=== PATIENT | female | born 1935 | race Caucasian/White ===

== ENCOUNTER 2023-05-26 15:30 | Emergency (ER) | payer MEDICARE, OTHER ==
[~2023-05-26] VITALS: Ht 165.1 cm; Wt 41.0 kg
[2023-05-26 15:58] LABS: BASOPHILS 0.7 % (0-2); EOSINOPHILS 1.1 % (0-6); HEMATOCRIT 37.1 % (35.0-50.0); LYMPHOCYTES 18.8 % (24-44); MCH 31.5 (27-36); MCHC 32.3 g/dl (30-36); MCV 97.5 fl (81-99); MONOCYTES 8.9 % (0-12); NEUTROPHILS 70.5 % (39-80); PLATELET COUNT 292 K/uL (140-440); RBC 3.81 M/ul (4.3-5.7); RDW 13.4 (10.5-15.0)
[2023-05-26 16:13] LABS: ALBUMIN 2.8 g/dL (3.4-5.0); ALBUMIN/GLOBULIN RATIO 0.76 (1.1-2.4); ANION GAP 16.6 (7-21); BILIRUBIN, TOTAL 0.5 ng/dL (0.2-1.0); BUN/CREATININE RATIO 29.26 (6.0-28.6); CALCIUM 9.1 mg/dL (8.5-10.1); CREATININE, SERUM 0.82 mg/dL (0.55-1.02); POTASSIUM 4.6 mmol/L (3.5-5.1); PROTEIN, TOTAL 6.5 g/dL (6.4-8.2)
--- OUTSIDE RECORDS SUMMARY | 2023-05-26 18:11 | XMS ---
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 Prema has no Care Guidelines for this patient. Boom VISIT COUNT (12 MO.) 1 GHULAM Dumas TOTAL 1 NOTE: Visits indicate total known visits. ED/UCC VISIT TRACKING (12 MO.) 05/26/2023 15:31 GHULAM Perez [place] TYPE: Emergency COMPLAINT: - LOW BP INPATIENT VISIT TRACKING (12 MO.) No inpatient visits to display in this time frame [email or web address]
[2023-05-26 18:34] LABS: BILIRUBIN, URINE NEGATIVE (negative); BLOOD/HGB, URINE TRACE-I (Negative); KETONE, URINE >=80 (Negative); LEUK ESTERASE, URINE SMALL (negative); NITRITE, URINE NEGATIVE (negative)
[2023-05-26 18:49] LABS: BACTERIA, URINE 3+ /hpf (negative); EPITHELIAL CELLS, URINE 0 /lpf (0-1+); REFLEX CULTURE, URINE Yes (No); WHITE BLOOD CELLS, URINE 41-50 /HPF (0-5)
[2023-05-26 19:08] VITALS: BP 118/61
[2023-05-26] MEDS ORDERED: CEPHALEXIN500 M1 PO (19:08)
== END 2023-05-26 19:13 | disposition home or self-care (01) ==
LOC: ED 15:30
PROVIDERS: Internal Medicine
DX: E11.65 Type 2 diabetes mellitus with hyperglycemia (principal); N39.0 Urinary tract infection, site not specified; I10 Essential (primary) hypertension; I25.10 Atherosclerotic heart disease of native coronary artery without angina pectoris; E78.5 Hyperlipidemia, unspecified; Z88.1 Allergy status to other antibiotic agents; Z88.2 Allergy status to sulfonamides; Z88.8 Allergy status to other drugs, medicaments and biological substances; Z79.4 Long term (current) use of insulin
CPT/HCPCS: 36415; 51701; 80053; 81001; 82010; 85025; 87088; 99285; A9270; J1815

== ENCOUNTER 2023-06-10 07:49 | Inpatient (IN) | payer MEDICARE, OTHER ==
[~2023-06-10] VITALS: Ht 165.1 cm; Wt 44.0 kg
[2023-06-10] VITALS (12 sets, daily range): BP systolic 95–123; BP diastolic 40–55
[~2023-06-10 07:49] MED LIST: CEPHALEXIN500 M1 PO
--- OUTSIDE RECORDS SUMMARY | 2023-06-10 07:57 | XMS ---
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 Prema has no Care Guidelines for this patient. Boom VISIT COUNT (12 MO.) 2 [facility] [place] H. TOTAL 2 NOTE: Visits indicate total known visits. ED/[facility] VISIT TRACKING (12 MO.) 06/10/2023 07:49 [facility] [place] TYPE: Emergency COMPLAINT: - BLOOD SUGAR PROBLEM 05/26/2023 15:[address] 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
[2023-06-10 08:23] LABS: EOSINOPHILS 0.1 % (0-6); HEMOGLOBIN 12.1 g/dL (12.0-18.0); LYMPHOCYTES 7.9 % (24-44); RDW 15.1 (10.5-15.0)
[2023-06-10 08:26] LABS: BASOPHILS 0.8 % (0-2); HEMATOCRIT 42.6 % (35.0-50.0); MCH 31.3 (27-36); MCHC 28.4 g/dl (30-36); MCV 110.1 fl (81-99); MONOCYTES 3.1 % (0-12); NEUTROPHILS 88.1 % (39-80); PLATELET COUNT 469 K/uL (140-440); RBC 3.87 M/ul (4.3-5.7)
[2023-06-10 08:45] LABS: ALBUMIN 3.3 g/dL (3.4-5.0); ALBUMIN/GLOBULIN RATIO 0.83 (1.1-2.4); ANION GAP 37.1 (7-21); BILIRUBIN, TOTAL 0.5 ng/dL (0.2-1.0); BUN/CREATININE RATIO 21.95 (6.0-28.6); CALCIUM 9.6 mg/dL (8.5-10.1); CREATININE, SERUM 1.64 mg/dL (0.55-1.02); POTASSIUM 4.1 mmol/L (3.5-5.1); PROTEIN, TOTAL 7.3 g/dL (6.4-8.2)
[2023-06-10 09:14] LABS: INFLUENZA B NAA NEGATIVE (NEGATIVE); RESPIRATORY SYNCYTIAL VIR NAA NEGATIVE (NEGATIVE)
[2023-06-10 09:16] LABS: BILIRUBIN, URINE NEGATIVE (negative); BLOOD/HGB, URINE SMALL (Negative); KETONE, URINE >=80 (Negative); LEUK ESTERASE, URINE SMALL (negative); NITRITE, URINE NEGATIVE (negative); PH, URINE 5.5 (5-7)
[2023-06-10] MEDS ORDERED: NEURONTIN300 MG PO (09:22)
[2023-06-10] MEDS ORDERED: VITAMIN B12-FO1 EACH PO (09:22)
[2023-06-10] MEDS ORDERED: LOPERAMIDE2 MG PO (09:23)
[2023-06-10] MEDS ORDERED: MAGNESIUM400 MG PO (09:23)
[2023-06-10] MEDS ORDERED: TYLENOL325 MG PO (09:23)
[2023-06-10 09:24] LABS: RED BLOOD CELLS, URINE 0-1 /hpf (0-5)
[2023-06-10 09:25] LABS: BACTERIA, URINE RARE /hpf (negative); CASTS, URINE NONE SEEN \\lpf; COLLECTION TYPE, URINE CATH; CRYSTALS, URINE NONE SEEN (0-1+); EPITHELIAL CELLS, URINE SQUAMOUS 1+ /lpf (0-1+); REFLEX CULTURE, URINE Yes (No); WHITE BLOOD CELLS, URINE >50 /HPF (0-5)
--- NOTE | 2023-06-10 09:50 | NUR ---
TRANSPORTED PT FROM ER TO CCU ROOM 129. REPORT RECEIVED FROM DIEGO PHELAN.
[2023-06-10] MEDS ORDERED: HUMALOG100 UNIT/1 SUB-Q (10:00)
--- NOTE | 2023-06-10 10:00 | NUR ---
PT ARRIVES FROM ER, ADMITTED FOR DKA. PT IS ALONE, VERY LETHARGIC AND MOANING, NOT ABLE TO ANSEWR MANY QUESTIONS. ARRIVES WITH INSULIN DRIP INFUSING WELL NS BOLUS. PT TRANSFERRED TO BED WITH SLIDER SHEET, SKIN ASSESSMENT SHOWS REDNESS ON COCCYX WITH SMALL AREA OF BREAKDOWN, ALLEVYN APPLIED. VSS, HR SLIGHTLY TACHYCARDIC AT 105, ON ROOM AIR WITH SPO2 96%. PT IS HAVING CHILLS AND WARM BLANKETS GIVEN, PT IS AFEBRILE WITH TEMP BANKS IN PLACE. PLAN TO CONT INSULIN INFUSION AND RECHECK LABS DISCUSSED WITH PT.
--- NOTE | 2023-06-10 11:16 | NUR ---
PT C/O LEFT HIP DISCOMFORT. PT REPOSITIONED WITH PILLOW UNDER HIP AND REPORTS DECREASE IN DISCOMFORT. REDRESSED RIGTH FORARM IV THERE WAS SOME BLOOD LEAKING FROM INSERTION SITE.
--- NOTE | 2023-06-10 11:31 | NUR ---
CRITICAL VALUE RECEIVED FROM LAB, LACTIC ACID 5, RESULT CALLED TO DR MEDINA, NO NEW ORDERS AT THIS TIME.
--- NOTE | 2023-06-10 12:17 | NUR ---
ORAL CARE PROVIDED TO PT WITH WET SPONGE. CHAPSTICK APPLIED TO LIPS. PT'S ON IN ROOM. CALL LIGHT WITHIN REACH
--- NOTE | 2023-06-10 13:06 | NUR ---
PT RESTING IN BED WITH EYES CLOSED. RESP EVEN AND UNLABORED. DAUGHTER IN LAW AT BEDSIDE HOLDING PT'S HAND. INSULIN DRIP ADJUSTED PER PROTOCOL. CALL LIGHT WITHIN REACH
[2023-06-10] MEDS ORDERED: VITAMIN D325 MC2 PO (13:25)
[2023-06-10] MEDS ORDERED: CENTRUM SILVER1 EAC3 PO (13:26)
[2023-06-10] MEDS ORDERED: VITAMIN B-12500 MCG PO (13:26)
[2023-06-10] MEDS ORDERED: CULTURELLE1 EACH PO (13:27)
[2023-06-10] MEDS ORDERED: MIRALAX17 GM PO (13:28)
[2023-06-10] MEDS ORDERED: SENNA8.6 MG PO (13:29)
[2023-06-10] MEDS ORDERED: FLEET ENEMA133 ML PR (13:30)
[2023-06-10] MEDS ORDERED: TRESIBA FL100 UNIT/1 SUB-Q (13:37)
--- NOTE | 2023-06-10 13:38 | NUR ---
MED [facility]
[2023-06-10 14:02] LABS: PH, VENOUS 7.386 (7.31-7.41)
--- NOTE | 2023-06-10 14:06 | NUR ---
LAB IN ROOM TO DRAW REPEAT BMP AND BLOOD GAS. PT TOLERATES. BLOOD SUGER BELOW 200, FOLLOWED ORDERS AND PROTOCOL. REDUCED INSULIN DRIP AND STARTED D5 1/2NS. SEE EMAR. ABX STARTED. PT'S DAUGHTER IN LAW REMAINS IN ROOM AND HELPS WITH ORAL CARE/FEEDING ICE CHIPS. PT REPOSITIONED IN BED LEFT LATERAL WITH PILLOW UNDER RIGHT HIP. CATHERTER REPOSITIONED AND U/O INCREASED. CALL LIGHT WITHIN REACH.
[2023-06-10 14:14] LABS: ANION GAP 15.9 (7-21); BUN/CREATININE RATIO 30.47 (6.0-28.6); CALCIUM 8.4 mg/dL (8.5-10.1); CREATININE, SERUM 1.05 mg/dL (0.55-1.02); POTASSIUM 2.9 mmol/L (3.5-5.1)
--- NOTE | 2023-06-10 14:34 | NUR ---
RECENT LAB RESULTS DISCUSSED WITH DR MEDINA. ORDERS GIVEN FOR KCL AND CHANGE IVF.
--- NOTE | 2023-06-10 16:24 | NUR ---
PT'S SON RETURNS. UPDATES ON PT GIVEN AND PT'S SON UNDERSTANDS AND DENIES FURTHER QUESTIONS. PT'S RESP EVEN AND UNLABORED SHE RESTS IN BED.
--- NOTE | 2023-06-10 17:07 | NUR ---
PT RESTING IN BED. PT MOVING AROUND MOANING. DR INFORMED OF SOFT PRESSURES AND THE POSSIBILITY OF TYLENOL FOR PAIN. NO NEW ORDERS RECEIVED AT THIS TIME. INSULIN DROP REMAINS AT THE RATE OF 2.4. CALL LIGHT GIVEN
--- NOTE | 2023-06-10 18:07 | NUR ---
PT TURNED TO OTHER SIDE. NOW LEFT LATERAL. BANKS DRAINING SUFFICIENT URINE. BLOOD SUGAR DECREASED. INSULIN DRIP DECREASED PER PROTOCOL. POTASSIUM STILL INFUSING. WARM BLANKET GIVEN. NO OTHER NEEDS VOICED AT THIS TIME. PT BACK TO SLEEP. CALL LIGHT GIVEN
[2023-06-10 18:15] LABS: BUN/CREATININE RATIO 34.04 (6.0-28.6); CALCIUM 8.2 mg/dL (8.5-10.1); CREATININE, SERUM 0.94 mg/dL (0.55-1.02)
--- NOTE | 2023-06-10 18:20 | NUR ---
CALLED TO UPDATE ON RECENT LAB RESULTS AND BP'S.
--- NOTE | 2023-06-10 20:00 | NUR ---
PATIENT ZAMORANO CONTINUES TO BE ON THE INSULIN GTT AND DKA PROTOCOL. CBG THIS HOUR WAS 163. PATIENT DENIES ANY DISCOMFORT AND STATES THAT SHE WOULD JUST LIKE TO REST A BIT MORE. LIGHT WERE DIMMED AND WARM BLANKETS PROVIDED
[2023-06-10 22:13] LABS: ANION GAP 14.4 (7-21); BUN/CREATININE RATIO 37.8 (6.0-28.6); CALCIUM 8.5 mg/dL (8.5-10.1); CREATININE, SERUM 0.82 mg/dL (0.55-1.02); POTASSIUM 4.4 mmol/L (3.5-5.1)
--- NOTE | 2023-06-10 23:07 | NUR ---
RECEIVED SBAR REPORT FROM ZHANE VIZCAINO. ALL QUESTIONS AND CONCERNS WERE ADDRESSED. NO FURTHER INTERVENTIONS NEEDED AT THIS TIME. PATIENT STATES COMFORTABLE AND DENIES ANY NEEDS
--- NOTE | 2023-06-10 23:20 | NUR ---
ROUNDED WITH MD MEDINA AND DISCUSSED PLAN OF CARE. CBG 165. BLOOD GLUCOSE LEVELS HAS BEEN WELL MAINTAINED BETWEEN 160-180 SINCE 1500. WILL COMMENCE CHECKING GLUCOSE Q2 AT 2200. PRN ANALGESICS ORDERED IF THE NEED ARISES
[2023-06-11] VITALS (18 sets, daily range): BP systolic 92–139; BP diastolic 44–93
--- NOTE | 2023-06-11 01:19 | NUR ---
PATIENT ZAMORANO IS RESTING COMFORTABLY WITH EYES CLOSED. VSS AND WDL. CATHETER CARE PERFORMED. NO CONCERSN AT THIS TIME.
[2023-06-11 02:44] LABS: ANION GAP 11.9 (7-21); BUN/CREATININE RATIO 34.61 (6.0-28.6); CALCIUM 8.3 mg/dL (8.5-10.1); CREATININE, SERUM 0.78 mg/dL (0.55-1.02); POTASSIUM 3.9 mmol/L (3.5-5.1)
--- NOTE | 2023-06-11 04:04 | NUR ---
PATIENT JAUN BEGAN MOANING IN DISCOMFORT. SHE STATED THAT HER BACK WAS HURTING BUT WAS HESISTANT TO TRY PRN MORPHINE. AFTER HAVING DISCUSSIONS WITH THIS RN. SHE AGREED TO TRY 2MG MORPHINE FOR PAIN RELIEF.
[2023-06-11 05:41] LABS: BASOPHILS 0.6 % (0-2); EOSINOPHILS 0.1 % (0-6); HEMATOCRIT 28.5 % (35.0-50.0); HEMOGLOBIN 9.3 g/dL (12.0-18.0); LYMPHOCYTES 10.7 % (24-44); MCH 31.7 (27-36); MCHC 32.5 g/dl (30-36); MCV 97.4 fl (81-99); MONOCYTES 6.5 % (0-12); NEUTROPHILS 82.1 % (39-80); PLATELET COUNT 270 K/uL (140-440); RBC 2.93 M/ul (4.3-5.7); RDW 13.3 (10.5-15.0)
[2023-06-11 05:57] LABS: ANION GAP 14.3 (7-21); BUN/CREATININE RATIO 32.18 (6.0-28.6); CALCIUM 8.3 mg/dL (8.5-10.1); CREATININE, SERUM 0.87 mg/dL (0.55-1.02); POTASSIUM 4.3 mmol/L (3.5-5.1)
--- NOTE | 2023-06-11 06:44 | NUR ---
PATIENT ZAMORANO WAS ABLE TO REST OVERNIGHT IN BETWEEN INTERVENTIONS. SHE CONTINUES TO BE ON AN INSULIN GTT AND RECHECKING CBG Q2. IN ADDTIONAL TO THE INSULIN, SHE HAS MAINT. FLUID GTT, AND SCHEDULED ABX. SHE REQUIRED 2 DOSES OF PRN MORPHINE FOR DISCOMFORT IN HER BACK AND INDWELLING BANKS CATHETER NEURO- ORIENTED X 3. DISORIENTED TO TIME. SLOW TO ANSWER QUESTIONS BUT SHE WILL ANSWER APPROPRIATELY. MOVES ALL EXTREMITIES AND HAS A PREFERENCE TO KEEP LEGS BENT. ENDORSED PAIN IN HER BACK AND DISCOMFORT FROM INDWELLING BANKS CATHETER. AT TIMES NOTED TO MOAN BUT SHE WOULD DENY ANY DISCOMFORT PRN MORPHINE GIVEN TO EASE DISCOMFORT. RESP- RA, O2 SATS MAINTAINED ABOVE 94%, BREATH SOUNDS CLEAR, SNORING NOTED CARDIAC- SR. SI S2, LOW GRADE FEVER MAX OF 99.8 VIA TEMP BANKS. CURRENTLY 98.5. NO EDEMA NOTED GI/- NPO, NORMOACTIVE BOWEL TONES, INDWELLING BANKS CATHETER REMAINS PATENT WITH ADEQUATE URINE OUTPUT INT- SEE PREVIOUS ASSESSMENT LDA'S- L/AC AND RIGHT FA. INSULIN GTT AT 4.2. D5 0.45 NS WITH 20KMEQ AT 125CC P/HR.
--- NOTE | 2023-06-11 07:20 | NUR ---
report from emelia rn, pt krishnan draining qs urine, inuslin pump running at 4.2 drip rate, dr robertson on floor here. pt eyes closed, resting temp 98. call light in reach. iv d5ns w/20k at 125 hr.
--- NOTE | 2023-06-11 08:30 | NUR ---
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 pt is tremerous, nauseated and moaning over and over, denies needs other then nausea. new zofran order. pt has call light in reach, and visible from this rn at rn station.
--- NOTE | 2023-06-11 08:30 | NUR ---
PATIENT UP IN RECLINER, 2PA REQUIRED. PATIENT NOT ASSISTING IN TRANSFER, CAN PIVOT HOWEVER. BREAKFAST PROVIDED, THIS COMMISSIONER CONSERVATION OF RESOURCES ASSISTING, PATIENT ATE VERY FEW BITES. SON AT BEDSIDE. CALL LIGHT IN EASY REACH
--- NOTE | 2023-06-11 09:24 | NUR ---
PT NOT FEELING UP TO VISIT AT THIS TIME. LEFT GUIDEPOST WITH PRAYER CARD AND CONTACT CARD. PRAYED FOR RELIEF FROM DISCOMFORT.
--- NOTE | 2023-06-11 09:26 | NUR ---
PATIENT SITTING UP IN RECLINER, SON, ASHISH, IN ROOM ASSISTING PATIENT TO EAT. PATIENT DOES NOT ANSWER QUESTIONS WHEN ASKED, SON ANSWERS FOR HER. PATIENT IS CURRENTLY LIVING IN [facility]. UNABLE TO AMBULATE, SON STATES SHE USES A WHEELCHAIR. STAFF ASSISTS PATIENT WITH ADL'S, MOBILITY ETC. SON STATES SHE IS UNABLE TO LEAVE FACILITY WITHOUT HELP. DR. SHEA WENT TO [facility] TO SEE PATIENT AFTER SHE WAS ADMITTED. SON STATES DME IS ALL AT FACILITY. UNKNOWN, OTHER THAN WHEELCHAIR, WHAT PATIENT USES. SON STATES HE HAS PREVIOUSLY TRANSPORTED PATIENT, BUT PREFERS IF SHE COULD BE SEEN AT [facility]. UNKNOWN NEEDS AT THIS TIME.
--- NOTE | 2023-06-11 09:32 | NUR ---
PT SON IN ROOM TRYING TO ENCOURAGE PT TO EAT MEAL.(bs IS 92 ON DEXCOM) PT IS MOANING ON AND OFF, NO REAL COMPLAINTS FROM PT, NEXT BS IS AT 10 AM AND DRIP WILL TURN OFF AND SL IV. PT AND OT IN TO SEE PT.
--- NOTE | 2023-06-11 10:00 | NUR ---
report to tracee cuba, iv sl, and insulin drip stopped, bs check at this time by legal records manager.
--- NOTE | 2023-06-11 10:23 | NUR ---
REPORT RECEIVED FROM NIKOS PHELAN AND CARE ASSUMED OF PT. PT IS UP IN CHAIR, INSULIN DRIP TURNED OFF. PT STATES SHE IS NOT FEELING VERY WELL BUT CANNOT PUT HER FINGER ON IT, DENIES PAIN, STATES "NO IM NOT REALLY HAVING ANY PAIN", DENIES NAUSEA. IS LOOKING TIRED AND IS WANTING TO GO BACK TO SLEEP. WARM BLANKET PROVIDED.
[2023-06-11 10:52] LABS: ANION GAP 13.7 (7-21); BUN/CREATININE RATIO 34.72 (6.0-28.6); CALCIUM 8.8 mg/dL (8.5-10.1); CREATININE, SERUM 0.72 mg/dL (0.55-1.02); POTASSIUM 3.7 mmol/L (3.5-5.1)
--- NOTE | 2023-06-11 12:02 | NUR ---
PT HAS BEGUN MOAING IN PAIN, WHEN ASKED WHERE IT IS HURTING SHE STATES "ALL OVER". PT HAS BEEN CONINOUSLY MOANING FOR APPROX 10 MINUTES, NO CHANGE AFTER REPOSITIONING. 2MG IV MORPHINE GIVEN. PT CONT TO SIT UP IN CHAIR. LUNCH BROUGHT IN, SHE DECLINES TO EAT OR DRINK ANYTHING AT THIS TIME.
--- NOTE | 2023-06-11 12:34 | NUR ---
UR NOTE: MCG MET DIABETES (ISC) INPATIENT ON ADMIT 06/11/23 VARIANCE GL DAY 2
--- NOTE | 2023-06-11 13:30 | NUR ---
AFTER MORPHINE WAS GIVEN PT CONT TO C/O PAIN WITH CONT MOANING OFF AND ON. AT ONE POINT SHE WAS CRYING "KILL ME, KILL ME". PT CONT TO REFUSE TO TAKE PO PILLS.
--- NOTE | 2023-06-11 14:16 | NUR ---
DR MEDINA OVER TO ASSESS PT REGARDING CONT PAIN, IVF RESTARTED AND PLAN TO DO IMAGING.
--- NOTE | 2023-06-11 15:00 | NUR ---
PT WAS TAKEN DOWN FOR A CT OF ABD/PELVIS AND BROUGHT BACK TO ROOM. PT CONT TO BE PAINFUL ALL OVER, C/O PAIN IN LEFT ARM. AWARE, IN TO DISCUSS PLAN WITH DAUGHTER IN LAW. PT CONT TO REFUSE TO TAKE PO, STATES SHE CANNOT SWALLOW A PILL AT THIS TIME.
--- NOTE | 2023-06-11 20:00 | NUR ---
PATIENT JAUN IS VISITING WITH HER SON JOE WHO IS AT BEDSIDE. SHE IS NOTED TO BE SOMNOLENT, HOWEVER IS ABLE TO ANSWER ORIENTATION QUESTIONS APPROPRIATELY. SHE DENIES ANY NEEDS AT THIS TIME.
--- NOTE | 2023-06-11 21:30 | NUR ---
RECEIVED SBAR REPORT FROM ZHANE CARROLL. ALL QUESTIONS AND CONCERS WERE ADDRESSED. ASSUMED PATIENT CARE. PATIENT ZAMORANO IS RESTING WITH EYES CLOSED. SHE DENIES ANY PAIN OR DISCOMFORTS AT THIS TIME. INDWELLING BANKS CATHETER IS BELOW THE BLADDER AND PATENT AND INTACT.
--- NOTE | 2023-06-11 21:58 | NUR ---
CBG 184. 2100 HUMALOG HELD DUE TO LACK OF APPETITE AND NO GLUCOSE SOURCE. EVENING PRESCRIBED ABX HUNG. ROUNDED WITH MD MEDINA TO SEE IF HE WANTED TO SWITCH MF TO INCLUDED SOME DEXTROSE. WE WILL WAIT UNTIL THE MORNING TO SEE IF HER APPETITE INCREASES. PATIENT JAUN IS FOUND TO BE MORE ALERT AND ORIENTED. WE DISCUSSED [employer] MUS[employer] AND [employer]GT[employer]. SHE REQUESTED TO WATCH TV AND IS CURRENTLY ENJOYING A SHOW RIGHT NOW. SHE DENIES ANY PAIN OR DISCOMFORTS AT THIS TIME.
--- NOTE | 2023-06-11 23:02 | NUR ---
PATIENT ZAMORANO CONTINUES TO ENJOY WATCHING TV. SHE DENIES ANY NEEDS OR DISCOMFORTS AT THIS TIME. WARM BLANKET APPLIED AND PILLOW PLACED BETWEEN KNEES TO PROTECT BONY PROMINENCES.
[2023-06-12] VITALS (9 sets, daily range): BP systolic 99–184; BP diastolic 50–85
--- NOTE | 2023-06-12 01:02 | NUR ---
PATIENT ZAMORANO CONTINUES TO ENDORSE COMFORT. SHE REQUESTED A SNACK. PUDDING WAS OFFERED AND 75%CONSUMED. SHE IS NOTED TO BE MORE CONVERSIVE AND IS ASKING APPROPRIATE QUESTIONS REGARDING HER CARE. MEDICATION EDUCATION GIVEN. SHE WAS REPOSITIONED AND A WARM BLANKET APPLIED.
--- NOTE | 2023-06-12 03:29 | NUR ---
PATIENT ZAMORANO IN RESTING COMFORTABLY WITH EYES CLOSED/ VSS AND WDL/ INDWELLING BANKS CATHETER REMAINS PATENT AND INTACT.
[2023-06-12 05:31] LABS: BASOPHILS 0.8 % (0-2); HEMATOCRIT 26.6 % (35.0-50.0); HEMOGLOBIN 8.9 g/dL (12.0-18.0); LYMPHOCYTES 21.6 % (24-44); MCH 31.9 (27-36); MCHC 33.6 g/dl (30-36); MCV 94.9 fl (81-99); MONOCYTES 7.7 % (0-12); NEUTROPHILS 68.9 % (39-80); PLATELET COUNT 220 K/uL (140-440); RBC 2.81 M/ul (4.3-5.7); RDW 13.7 (10.5-15.0)
--- NOTE | 2023-06-12 06:10 | NUR ---
PATIENT ZAMORANO HAD AND PLEASANT NIGHT. SHE RESTED COMFORTABLY WITH EYES CLOSED FOR MOST OF THE SHIFT. SHE WAS ALSO ABLE TO COMMUNICATE ALL OF HER NEEDS AND REQUESTS WITH EASE. NEURO- ALERT AND ORIENTED X 3. ABLE TO MOVE ALL EXTREMITIES BUE 3/5 BLE 2/5. DENIES PAIN OR DISCOMFORT. CARDIAC- NSR, AFEBRILE, PALPABLE RADIAL, PEDAL AND POST TIBIAL PULSES 2/2, S1 S2 CARDIAC SOUNDS AUSCULTATED RESP- RA, CLEAR/ DIM BREATH SOUNDS IN ALL QUADRANTS. ABLE TO COUGH AND CLEAR AIRWAY GI/- ABDOMEN SOFT AND NON-TENDER. BOWEL SOUNDS AUSCULTATED IN ALL 4 QUADRANTS. MIDNIGHT SNACK PROVIDED, INDWELLING BANKS CATHETER REMAINS PATENT AND INTACT. ADEQUATE URINE AMOUNT FOR SHIFT. INT- SEE PREVIOUS ASSESSMENT. NO CHANGES NOTED LDA- 20G L FA NS 125CC
--- NOTE | 2023-06-12 07:30 | NUR ---
REPORT RECEIVED. RESTING IN BED.
--- NOTE | 2023-06-12 08:00 | NUR ---
ASSESSMENT DONE. SITTING UP IN BED FOR BREAKFAST. TALKED WITH PATIENT ABOUT POC FOR DAY. IS UNDERSTANDING. IVF PATENT.
--- NOTE | 2023-06-12 10:30 | NUR ---
PATIENT RESTING IN BED WITH EYES CLOSED. RESPIRATIONS EVEN AND UNLABORED. PATIENT AWAKENS EASILY AND REPORTS INCONTINECE OF URINE. PATIENTS BREIF WAS SOILED AND CHANGED. PURE WICK WAS PUT IN PLACE AFTER CARTER CARE PROVIDED. WARM BLANKET PROVIDED. PATIENTS VS AND I&Os OBTAINED AND DOCUMENTED. EVENING MEDICATIONS ADMINSITERED, SEE MAR. ASSESSMENT COMPLTE. PATIENT VSS. PATIENT HAS NO FURHTER NEEDS AT THIS TIME. CALL LIGHT IN REACH.
--- NOTE | 2023-06-12 11:24 | NUR ---
ASSISTED PATIENT WITH EATING HER LUNCH. TOOK APPROX 40% OF LUNCH. REMAINS IN CHAIR. PATIENT HAS BEEN VERY TALKATIVE. DENIES PAIN.
--- NOTE | 2023-06-12 11:40 | NUR ---
UP TO CHAIR WITH TOTAL ASSIST. INCONT OF STOOL.
--- NOTE | 2023-06-12 11:59 | NUR ---
OVER TO CHECK IN WITH PATIENT, PATIENT UP TO THE COMMODE AT THIS TIME. WILL CHECK IN WITH PATIENT AT A LATER TIME.
--- NOTE | 2023-06-12 15:31 | NUR ---
SLEEPING. NO DISTRESS NOTED. IVF PATENT.
--- NOTE | 2023-06-12 16:30 | NUR ---
INC OF STOOL AND URINE. BANKS CATH NO LONGER INTACT. INADVERTLY DISLODGED.
--- NOTE | 2023-06-12 17:00 | NUR ---
REPORT GIVEN TO MED-SURG. TO MED-SURG VIA BED.
--- NOTE | 2023-06-12 17:47 | NUR ---
PT ARRIVES TO MED-SURG ROOM 112 AT 1740 VIA BED ESCORTED BY ZHANE LANDEROS AND ZHANE LARIOS. SL IN LAC. IV, 20G, IN LFA INFUSING CEFEPIME, SITE WNL. NOTED YEISON PERSONAL GLUCOMETER IN LEFT ARM. MULTIPLE DRESSINGS IN PLACE TO BLE AND FACE INTACT.
--- NOTE | 2023-06-12 17:58 | NUR ---
PT AWAKE AND ALERT. SITS UP IN BED, FEEDS SELF DINNER. CALL LIGHT IN REACH, NO REQUESTS AT THIS TIME.
--- NOTE | 2023-06-12 17:59 | NUR ---
RECEIVED REPORT FROM CCU RN AT 1640. PATIENT TRANSFERRED TO THE UNIT [facility]AR[facility] TO [facility]. VITAL SIGNS AND PATIENT FULL ASSESSMENT RECORDED IN THE CHART. PATIENT EXHIBITING WEAKNESS. PATIENT REQUESTING PADDING ON THE COMMODE DUE TO BEING THIN. GOT DONUT PADDING ON FBC AND PLACED IT ON THE COMMODE. PATIENT WITH FLAT AFFECT AND IS LETHAGIC. PATIENT NO LONGER HAS A BANKS CATHER. DR. MEDINA NOTIFIED AND SAID IT DOES NOT TO BE RE-INSERTED. PATIENT SITTING UPRIGHT IN THE BED AND EATING DINNER. PATIENT STATED NO FURTHER NEEDS AT THIS TIME. CALL LIGHT AND PERSONAL BELONGINGS ARE WITHIN REACH.
--- NOTE | 2023-06-12 19:28 | NUR ---
REPORT RECIEVED FROM DAY SHIFT RN. THIS RN IN TO CHEK ON PATIENT. PATIENT RESTING IN BED WITH EYES CLOSED. REPIRATIONS EVEN AND UNLABORED. CALL LIGHT IN REACH.
--- NOTE | 2023-06-12 21:30 | NUR ---
CALL LIGHT ANSWERED. PATIENT INCONTINENT OF STOOL. BRIEF AND CHUX REPLACED AFTER CARTER CARE PROVIDED. WARM BLANKET PROVIDED. NO FURTHER NEEDS. CALL LIGHT IN REACH.
--- NOTE | 2023-06-13 01:19 | NUR ---
ROUNDING ON PATIENT. PATIENT LAYING IN BED WIH EYES OPEN. RESPIRATIONS EVEN AND UNLABORED. PATIENT STATES SHE WANTS TO WATCH TV. TV TURNED ON FOR PATIENT AND CALL LIGHT PLACED IN HAND. PATIENT HAS NO FURTHER NEEDS.
--- NOTE | 2023-06-13 02:33 | NUR ---
CALL LIGHT ANSWERED. PATIENT INCONTITENT OF STOOL. NEW BREIF AND PUREWICK IN PLACE AFTER CARTER CARE PRIVIDED. WARM BLANKET PROVIDED. SECOND ASSESSMENT COMPLETE. BREATH SOUNDS CLEAR. HEEL PROTECTERS IN PLACE. CALL LIGHT PLACED IN HAND. NO FURTHER NEEDS.
--- NOTE | 2023-06-13 04:05 | NUR ---
PATIENT RESTING IN BED WITH EYES CLOSED. RESPIRATIONS EVEN AND UNLABORED. IV INFUSING PER ORDER. CALL LIGHT IN REACH.
[2023-06-13 05:36] LABS: BASOPHILS 0.7 % (0-2); HEMATOCRIT 30.5 % (35.0-50.0); HEMOGLOBIN 10.2 g/dL (12.0-18.0); MCHC 33.3 g/dl (30-36); MCV 96.1 fl (81-99); MONOCYTES 9.8 % (0-12); NEUTROPHILS 55.5 % (39-80); PLATELET COUNT 242 K/uL (140-440); RBC 3.18 M/ul (4.3-5.7); RDW 13.3 (10.5-15.0)
[2023-06-13 05:48] LABS: ANION GAP 9.7 (7-21); CALCIUM 8.1 mg/dL (8.5-10.1); CREATININE, SERUM 0.5 mg/dL (0.55-1.02); POTASSIUM 2.7 mmol/L (3.5-5.1)
[2023-06-13 06:03] VITALS: BP 134/63
--- NOTE | 2023-06-13 06:20 | NUR ---
PT RESTING WITH EYES CLOSED. SNORING SOFTLY. AWAKENS EASILY. VS AND I&O OBTAINED, WNL. PT INCONTINENT AROUND PUREWICK. BRIEF CHANGED, ACRTER CARE DONE. NEW PUREWICK IN PLACE. PT REPOSITIONED TO RIGHT SIDE WITH PILLOWS. WARM BLANKET AND SIPS OF WATER PROVIDED. PERSONAL CELL PHONE PLACED NEAR LEFT HAND PER REQUEST. CALL LIGHT IN REACH.
--- NOTE | 2023-06-13 07:14 | NUR ---
RECEIVED REPORT FROM WELD FITTER RN. PATIENT RESTING IN BED WITH EYES CLOSED AND SNORING.
--- NOTE | 2023-06-13 10:27 | NUR ---
PATIENT MORNING MEDICATIONS ADMINISTERED PER THE EMAR. FULL ASSESSMENT COMPLETE AND CHARTED. NIKOS PHELAN BEGAN A NEW IV DUE TO THE LEFT WRIST BEING INFLAMMED AND GETTING NO BLOOD RETURN. PATIENT STATED PAIN AT THE IV SITE WITH POTASSIUM INFUSING. SLOWED THE RATE TO PROVIDE MORE COMFORT FOR THE PATIENT. PATIENT HAD ONE BOWEL MOVEMENT. NEW BRIEF WAS PUT ON THE PATIENT WITH A NEW PUREWICK IN PLACE. PATIENT STATED NO PAIN AT THIS TIME. DR. MEDINA NOTIFIED OF BLOOD GLUCOSE LEVEL OF [address] MEDINA STATED TO CONTINUE THE GLARGINE DOSE. PATIENT WAS UPRIGHT AND EATING BREAKFAST. PATIENT STATED NO FURTHER NEEDS AT THIS TIME. CALL LIGHT AND PERSONAL BELONGINGS ARE WITHIN REACH.
[2023-06-13 10:37] VITALS: BP 135/58
--- NOTE | 2023-06-13 10:39 | NUR ---
PATIENT IN BED RESTING WITH EYES CLOSED. VITALS AND I&O'S CHARTED. CALL LIGHT IN REACH. NO FURTHER NEEDS AT THIS TIME.
--- NOTE | 2023-06-13 11:27 | NUR ---
PATIENT RESTING COMFORTABLY WITH EYES CLOSED. RESPIRATIONS ARE EQUAL AND UNLABORED. CEFEPIME AND NORMAL SALINE ARE STARTED ON THE Y SITE THAT POTASSIUM CHLORIDE IS RUNNING THROUGH. COMBALITY CONFIRMED. IV SITE FLUSHING WELL. PATIENT CALL LIGHT AND PERSONAL BELONGINGS ARE WITHIN REACH.
--- NOTE | 2023-06-13 11:29 | NUR ---
PT APPEARED TO BE SLEEPING. DID NOT ROUSE TO MY KNOCK. DID NOT DISTURB. PRAYED FOR PEACE AND COMFORT. LEFT PRAYER CARD.
--- NOTE | 2023-06-13 12:33 | NUR ---
UR NOTE: MCG DIABETES (ISC) VARIANCE GL DAY 3
--- NOTE | 2023-06-13 13:00 | NUR ---
Spoke with pt. She states she happily lives at [facility] and plans on returning when she can go home. She denies needs. PT is in the room and has just finished working with pt. Pt would like HH PT/OT when she discharges.
--- NOTE | 2023-06-13 13:12 | NUR ---
PATIENT BEDDING AND BRIEF CHANGED. PATIENT HAD BOWEL MOVEMENT. SITTING IN RECLINER AFTER WORKING WITH PT.
[2023-06-13 14:17] VITALS: BP 123/69
--- NOTE | 2023-06-13 14:21 | NUR ---
PATIENT SITTING UP IN CHAIR RESTING AT THIS TIME. VITALS AND I&O'S CHARTED. FRESH WATER GIVEN. CALL LIGHT IN REACH. NO FURTHER NEED AT THIS TIME.
--- NOTE | 2023-06-13 14:32 | NUR ---
PATIENT DAUGHTER REQUESTING UPDATE. RN VERBALIZED THAT POTASSIUM WAS LOW AND IS BEING REPLACED BY IV AND PO POTASSSIUM. TOLD HER ABOUT THE CULTURES COMING BACK BUT WE ARE JUST WAITING TO SEE SENSITIVITIES. PATIENTS DAUGHTER ASKED ABOUT THE STATUS OF HER DIARRHEA. RN STATED THAT THE STOOL IS STILL SOFT BUT NOT FORMED AND HARD. PATIENTS DAUGHTER ASKED WHEN DISCHARGE WOULD BE. VERBALIZED THAT SHE WOULD NOT BE DISCHARGED TODAY BUT WE WILL HAVE A BETTER IDEA TOMORROW. PATIENT DAUGHTER STATED NO FURTHER QUESTIONS. CALL THEN ENDED.
--- NOTE | 2023-06-13 14:44 | NUR ---
PT STAND PIVOT BACK TO BED. INCONTINENT OF URINE, PERICARE PERFORMED AND NEW PUREWICK PLACED. PT DENIES OTHER NEEDS AT THIS TIME.
--- NOTE | 2023-06-13 15:01 | NUR ---
[facility] with [facility] pt may [facility] tomorrow. Requested to know if they prefer am or pm dc.
--- NOTE | 2023-06-13 16:07 | NUR ---
PATIENT BRIEF AND PUREWICK CHANGED. SMILEY HAD A LOOSE MUCOUSY STOOL. PATIENT IV SITE ASSESSED. NO INFILTRATION, REDNESS, OR BRUISING. PATIENT HAS NO PAIN WITH MEDICATIONS AND FLUIDS INFUSING. SKIN FRAGILE AND DRY. ALEVYN STILL PLACED ON THE BACKSIDE AND NOT SOILED THROUGHOUT THE BRIEF CHANGE. BRUISE ON THE RIGHT HAND WAS 11.5 CM BY 5.5 CM. PATIENT STATED NO FURTHER NEEDS AT THIS TIME. CALL LIGHT AND PERSONAL BELONGINGS ARE WITHIN REACH. IV CEFEPIME INFUSION STARTED.
[2023-06-13 17:34] LABS: BASOPHILS 0.3 % (0-2); EOSINOPHILS 1.2 % (0-6); HEMATOCRIT 33.4 % (35.0-50.0); LYMPHOCYTES 15.6 % (24-44); MCV 96.7 fl (81-99); MONOCYTES 8.9 % (0-12); PLATELET COUNT 251 K/uL (140-440); RBC 3.45 M/ul (4.3-5.7); RDW 13.9 (10.5-15.0)
[2023-06-13 17:43] LABS: ANION GAP 9.9 (7-21); BUN/CREATININE RATIO 21.81 (6.0-28.6); CALCIUM 8.2 mg/dL (8.5-10.1); CREATININE, SERUM 0.55 mg/dL (0.55-1.02); POTASSIUM 3.9 mmol/L (3.5-5.1)
[2023-06-13 17:52] VITALS: BP 139/69
--- NOTE | 2023-06-13 18:06 | NUR ---
PATIENT ON ROOM AIR AND LUNG SOUNDS CLEAR. BLOOD GLUCOSE CHECKS THIS MORNING WERE LOW BUT HAVE PROGRESSIVELY INCREASED THROUGHOUT THE DAY. POTASSIUM THIS MORNING WAS 2.7 AND WAS BEING REPLACED WITH IV AND PO POTASSIUM. PATIENT IS A HIGH FALL RISK AND 2 PERSON ASSIST. PATIENT INCONTINENT OF STOOL AND HAS A PUREWICK IN PLACE. LAST STOOL WAS MUCOUSY AND STOOL SAMPLE IS NEEDED TO RULE OUT C.DIFF. PATIENT IS ON A 60 G CARBOHYDRATE DIET AND HAS POOR APPETITE. SUPPLEMENTING WITH ENSURES. IV SITE IS IN THE LEFT FOREARM AND IS PATENT. CEFEPIME RUNNING AND SHE HAS IV MAINTAINANCE FLUIDS NS @ 125 ML/HR. PLAN OF CARE IS TO POSSIBLY INSERT A MIDLINE FOR EXTENDED ANTIBIOTICS DUE TO URINE CULTURES SUSCEPTIBILITY.
--- NOTE | 2023-06-13 19:50 | NUR ---
Patient resting in bed watching TV, no complaints, report provided by dayshift RN, call light within reach.
[2023-06-13 21:23] VITALS: BP 130/77
--- NOTE | 2023-06-13 21:30 | NUR ---
Patient without complaints, VSS, Ap. reg. Denies pain, blood sugar 263 and 3u SS given. purewick in place and urine dark alix. NS infusing @ 125/h.. Patient's call light within reach.
--- NOTE | 2023-06-13 23:06 | NUR ---
Patient resting between care. incont. loose dark brown stool, Sample sent to lab per va. mami changed and during care patient was incont. large amt of urine. Continues to deny pain, call light in reach.
--- NOTE | 2023-06-14 00:05 | NUR ---
Patient resting with eyes closed, appears comfortable, no distress, RR - 18, call light within reach.
[2023-06-14 01:29] VITALS: BP 132/51
--- NOTE | 2023-06-14 01:30 | NUR ---
Patient sleeping between care. vss, continues to deny pain, Requested and given an ensure. No further stools, purewick in place, assisted to reposition, lights out and call light in reach.
--- NOTE | 2023-06-14 03:15 | NUR ---
patient awake, no complaints, assisted with repositioning, call light within reach.
--- NOTE | 2023-06-14 04:12 | NUR ---
Patient resting with eyes closed, appears comfortable, no distress, lights are out and call light is within reach.
[2023-06-14 05:45] LABS: BASOPHILS 0.5 % (0-2); EOSINOPHILS 3.1 % (0-6); HEMATOCRIT 30.1 % (35.0-50.0); LYMPHOCYTES 22.5 % (24-44); MCHC 33.2 g/dl (30-36); MCV 96.6 fl (81-99); NEUTROPHILS 62.9 % (39-80); PLATELET COUNT 216 K/uL (140-440); RBC 3.12 M/ul (4.3-5.7); RDW 13.7 (10.5-15.0)
[2023-06-14 05:55] LABS: ANION GAP 10.6 (7-21); CALCIUM 7.7 mg/dL (8.5-10.1); CREATININE, SERUM 0.5 mg/dL (0.55-1.02); POTASSIUM 3.6 mmol/L (3.5-5.1)
[2023-06-14 06:00] VITALS: BP 128/55
--- NOTE | 2023-06-14 06:03 | NUR ---
Patient has slept on and off during the night, no c/o discomfort, Has had to loose dark brown stools (incont.). Purewick in place and patient has also had incont. urine. VSS, No s/s of hypo or hyper glycemia, assisted to turn throughout the night. At this time she has no complaints, call light in reach.
--- NOTE | 2023-06-14 07:44 | NUR ---
RECIEVED REPORT FROM NURSE. PT IS CURRENTLY LAYING IN BED. SHE IS A+O. REQUESTED CREAM FOR HER COFFEE. NO OTHER SAE REQUESTED OR NEEDED AT THIS TIME. CALL LIGHT WITHIN REACH.
--- NOTE | 2023-06-14 09:30 | NUR ---
PATIENT AWAKE IN BED, FINISHED WITH BREAKFAST. VITALS AND I&OS CHARTED, PUREWICK EMPTIED. CALL LIGHT IN EASY REACH. NO OTHER NEEDS AT THIS TIME
[2023-06-14 10:09] VITALS: BP 118/59
--- NOTE | 2023-06-14 10:53 | NUR ---
PT ASSESSMENT COMPLETE. PT HAS BRUISING ON HER RIGHT HAND. ALLEVYN IS PLACED THERE. ALSO PT HAS A POSSIBLE PRESSURE SORE WITH REDDENED AREA. SCAB UNDER BRIDGE OF NOSE LUNGS SOUND CLEAR. PT STATES SHE HAS CHRONIC NUMBNESS IN ALL EXTREMETIES. CURRENTLY IN NO PAIN. NO ABNORMALITIES FOUND. PT WAS CHANGED DUE TO INCONTINENT STOOL. PURWICK CHANGED. PT IS CURRENTLY IN BED RESTING WATCHING TV. NO OTHER CARES ARE REQUESTED OR NEEDED AT THIS TIME. CALL LIGHT WITHIN REACH
--- NOTE | 2023-06-14 12:10 | NUR ---
PT RECIEVED INSULIN. SON CAME TO VISIT ND ASKED ABOUT HER DISCHARGE AND I XPLAINED THAT THE PLAN IS FOR HER TO BE DISCHARGED TOMORROW. ALSO THAT SHE IS STARTING A NEW ANTIBIOTIC CALLED AUGMENTIN THAT CAN BE TAKEN PO AT HOME. ASKED PATIENT IF SHE NEEDED ANYTHING ELSE PATIENT STATED NO AND SHE WAS TIRED. NO OTHER CARES NEEDED OR REQUESTED AT THIS TIME. CALL LIGHT WITHIN REACH.
[2023-06-14 13:49] VITALS: BP 128/54
--- NOTE | 2023-06-14 13:53 | NUR ---
PATIENT RESTING IN BED, WOKE TO VOICE. VITALS AND I&OS CHARTED. PUREWICK CANISTER EMPTIED. PATIENT REFUSED LUNCH, "I'M SLEEPY." THIS BRIDGE MANAGER ENCOURAGED PATIENT TO DRINK OR EAT THROUGHOUT AFTERNOON, PATIENT REFUSED. "NOTHING SOUNDS GOOD." RN NOTIFIED. CALL LIGHT IN EASY REACH.
--- NOTE | 2023-06-14 14:49 | NUR ---
UR NOTE: [facility] DIABETES (ISC) INPATIENT VARIANCE GL DAY 3
--- NOTE | 2023-06-14 15:00 | NUR ---
PATIENT WORKING WITH THIS ICE CUTTER AND P/T. USING FWW AND GAIT BELT, PATIENT ABLE TO STAND SEVERAL TIMES AT SIDE OF BED. PATIENT UNABLE TO FULLY EXTEND AND STRAIGHTEN HER LEGS, BUT COULD HOLD FOR 10-15 SECONDS EACH TIME. PATIENT STATES HER WISH IS TO "CONTINUE P/T AND TO BE ABLE TO WALK AGAIN." PATIENT BACK TO BED AFTER ACTIVITY AND REPOSITIONED ONTO RIGHT SIDE, PILLOW SUPPORTING IN BACK. CHRISTEL ENSURE PROVIDED. PURE WICK IN PLACE AND SUCTION ON. CALL LIGHT IN EASY REACH
--- NOTE | 2023-06-14 16:07 | NUR ---
pt was able to stand with physical therapy using a fww today. pt still has motor difficulty bilaterally in legs. pt has expressed her desire to be able to walk again and is participating in her care. no other abnormal findings.
--- NOTE | 2023-06-14 16:46 | NUR ---
Scheduled wc van for transport to [facility] at 10:30 tomorrow. I have a call into [facility] to check if they can provide the wc. Awaiting for response.
[2023-06-14 17:28] VITALS: BP 133/52
--- NOTE | 2023-06-14 18:53 | NUR ---
PT HAD DINNER TRAY NEXT TO BED AND DIDNT SEEM INTERESTED UNTIL NURSE OFFERED TO HELP HER EAT. NURSE GAVE PATIENT SMALL BITES OF ALL THAT WAS ON HER TRAY. WHEN ASKED IF SHE WANTED MORE PT STATED YES AND IS CURRENTLY EATING. PT NEEDS ENCOURAGEMENT AND SOME TO STANBY AND HELP ASSIST HER IN EATING. PT PREFERS BREAKFAST FOOD SUCH SCRAMBLED EGGS AND CITIZEN OF [place] TO[employer].
--- NOTE | 2023-06-14 19:37 | NUR ---
REPORT RECEIVED FROM DAY SHIFT RN. PT RESTING IN BED. SAFETY PRECAUTIONS MAINTAINED. CALL LIGHT WITHIN REACH. WILL CONTINUE TO MONITOR.
[2023-06-14 20:38] VITALS: BP 149/56
--- NOTE | 2023-06-14 20:49 | NUR ---
PT ASSESSED AND MEDICATIONS GIVEN. PUREWICK INPLACE. IVF INFUSING PER ORDER. VSS. SAFETY PRECAUTIONS MAINTAINED. CALL LIGHT WITHIN REACH. WILL CONTINUE TO MONITOR.
[2023-06-15 04:56] VITALS: BP 174/63
[2023-06-15 05:58] LABS: BASOPHILS 0.2 % (0-2); EOSINOPHILS 0.4 % (0-6); HEMATOCRIT 38.1 % (35.0-50.0); HEMOGLOBIN 12.5 g/dL (12.0-18.0); LYMPHOCYTES 1.9 % (24-44); MCH 31.6 (27-36); MCHC 32.8 g/dl (30-36); MCV 96.1 fl (81-99); MONOCYTES 3.1 % (0-12); NEUTROPHILS 94.4 % (39-80); PLATELET COUNT 252 K/uL (140-440); RBC 3.96 M/ul (4.3-5.7); RDW 13.6 (10.5-15.0)
--- NOTE | 2023-06-15 06:04 | NUR ---
PT RESTED SOME DURING THE SHIFT. PT HAD 2 INCONTINENT LIQUID BM'S DURING THE SHIFT. PUREWICK CHANGED. PT CONTINUES TO HAVE DARK, DANIEL URINE. PT ALSO HAD N/V DURING THE SHIFT. ZOFRAN GIVEN. IVF INFUSNG PER ORDER. PENDING C-DIFF LAB. VSS. SAFETY PRECAUTIONS MAINTAINED. CALL LIGHT WITHIN REACH. WILL CONTINUE TO MONITOR.
[2023-06-15 06:08] LABS: ANION GAP 17.3 (7-21); BUN/CREATININE RATIO 20.68 (6.0-28.6); CALCIUM 8.3 mg/dL (8.5-10.1); CREATININE, SERUM 0.58 mg/dL (0.55-1.02); POTASSIUM 3.3 mmol/L (3.5-5.1)
--- NOTE | 2023-06-15 06:41 | NUR ---
vs reassessed and collected per primary rn tez, primary rn made aware of results. pt awoke easily to voice, occas. donte noted r/t nausea. primary rn aware and to call md to provide update. call light left in reach of pt.
[2023-06-15 06:44] VITALS: BP 135/54
--- NOTE | 2023-06-15 06:58 | NUR ---
HSPITALIST CALLED AND NOTIFIED ON WBC COUNT AND ASKED FOR AN ADDITIONAL NAUSEA MEDICATION ORDER. HOSPITALIST PUT IN NEEDED ORDERS.
--- NOTE | 2023-06-15 07:29 | NUR ---
recieved rport from night nurse. Pt is currently awake getting blood draw from lab. pt has been experiencing nausea and vomiting. will be giving her meds this morning to combat that. no other cares needed or requested at this time. call light within reach
[2023-06-15 07:32] LABS: BASOPHILS 0.1 % (0-2); EOSINOPHILS 0.1 % (0-6); HEMATOCRIT 37.4 % (35.0-50.0); HEMOGLOBIN 11.9 g/dL (12.0-18.0); MCH 30.9 (27-36); MCHC 31.9 g/dl (30-36); MCV 96.9 fl (81-99); NEUTROPHILS 94.8 % (39-80); PLATELET COUNT 271 K/uL (140-440); RBC 3.86 M/ul (4.3-5.7)
--- NOTE | 2023-06-15 07:50 | NUR ---
PT GIVEN MEDICATION FOR NAUSEA. ACCORDING TO THE NIGHT NURSE PT WAS FEELING VERY NAUSEOUS AND HAD SOME EPISODES OF VOMITUS. WILL WAIT TO GIVE MEDS UNTIL MEDICATIONHAS HAD TIME TO WORK. NO OTHER CARES ARE NEEDED OR REQUESTED AT THIS TIME CALL LIGHT WITHIN REACH
--- NOTE | 2023-06-15 08:30 | NUR ---
Pt discussed in 8:30 meeting. Pt's WBC count jessica and pt will not return to [facility] today. Called pts son, the wc van, and [facility] and updated pt will not [facility] to [facility] today.
--- NOTE | 2023-06-15 08:40 | NUR ---
PT IS CURRENTLY IN BED EATING WITH HELP OF BOX FOLDING MACHINE OPERATOR. WHEN GETTING MEDS READY PT STARTED COUGHING AND STARTED GAGGING AND THREW UP PART OF HER MEDICATIONS. DID A NEUROLOGICAL ASSESSMENT THEN A FULL ASSESSMENT. PT LUNG SOUNDS CLEAR, A+O, NO SIGNS OF SEPSIS, POSSIBLE CONCERN OF ASPIRATION. WILL CONSULT DR SINHA. PT PURWICK WAS TAKEN OUT DUE TO IT FILLING UP WITH STOOL. PATIENT keiko area cleaned and changed. NO OTHER CARES ARE NEEDED AT THIS TIME. CALL LIGHT WITHIN REACH
[2023-06-15 10:31] VITALS: BP 140/48
--- NOTE | 2023-06-15 10:56 | NUR ---
CALLED DR SINHA WITH CONCERNS ABOUT PT POSSIBLE ASPIRATION. PT HAD DIFFICULTY SWALLOW PILLS AND FOOD FROM BREAKFAST THIS MORNING. PT HAS ALSO BEEN DEALING WITH SEVERE NAUSEA AND HAS HAD SOME VOMITUS. DR SINHA VERBAL ORDERED A CHEST XRAY TO RULE OUT ASPIRATION AND ALSO A SWALLOW STUDY WITH SPEECH THERAPY.
--- NOTE | 2023-06-15 11:12 | NUR ---
PT RECEIVING CARE. DID NOT INTERRUPT. PRAYED FOR YAZIDISM OF HEALTH AND ABIDING PEACE.
--- NOTE | 2023-06-15 12:47 | NUR ---
Patient verbalized wanting to wake up. Patient was given a bed bath, allevyn was placed on sacrum. Patient moved to chair with assistance of PT. Waffle mattress added to bed & linens changed.
--- NOTE | 2023-06-15 13:17 | NUR ---
PT CALLED NURSE STATION TO BE PUT BACK IN BED. ROBIN LIFT USES WITH SECOND ASSIST FROM NURSE. PT IS CURRENTLY IN BED. PT REQUESTED TO REST FOR A WHILE BEFORE EATING. NEW BAG OF NORMAL SALINE STARTED NO OTHER CARES ARE NEEDED OR REQUESTED AT THIS TIME. CALL LIGHT WITHIN REACH
[2023-06-15 13:42] VITALS: BP 115/54
--- NOTE | 2023-06-15 13:48 | NUR ---
PATIENT IS SLEEPING.
--- NOTE | 2023-06-15 14:45 | NUR ---
PT WAS COMPLAINING OF HER LEG BEING STIFF. PT WAS REPOSITIONED AND LEG STRETCHES PERFORMED. PT STATES LEG WAS FEELING BETTER. NO OTHER CARES NEEDED OR REQUESTED AT THIS TIME. CALL LIGHT WITHIN REACH
--- NOTE | 2023-06-15 17:30 | NUR ---
WENT INTO PT ROOM TO GIVE MEDS AND PT WAS SOAKED WITH URINE AND STOOL. GOT ASSISTANCE TO GET HER CHANGED. SHE TOOK HER MEDS WELL WHEN GIVEN ONE AT A TIME WITH HER HUNG WISE. PT IS NOT INTERESTED IN EATING SOLID FOOD ATTHIS TIME. NO OTHER CARES ARE NEEDED OR REQUESTED. CALL LIGHT WITHIN REACH
[2023-06-15 17:59] VITALS: BP 157/59
--- NOTE | 2023-06-15 19:29 | NUR ---
REPORT RECEIVED FROM DAY SHIFT RN. PT RESTING IN BED. FAMILY AT BEDSIDE. SAFETY PRECAUTIONS MAINTAINED. CALL LIGHT WITHIN REACH. WILL CONTINUE TO MONITOR.
[2023-06-15 20:08] VITALS: BP 122/62
--- NOTE | 2023-06-15 20:49 | NUR ---
PT ASSESSED AND MEDICATIONS GIVEN. VSS. IVF INFUSING PER ORDER. SAFETY PRECAUTIONS MAINTAINED. CALL LIGHT WITHIN REACH. WILL CONTINUE TO MONITOR.
[2023-06-16 05:09] VITALS: BP 149/66
[2023-06-16 05:44] LABS: ANION GAP 11.7 (7-21); BUN/CREATININE RATIO 19.56 (6.0-28.6); CALCIUM 7.9 mg/dL (8.5-10.1); CREATININE, SERUM 0.46 mg/dL (0.55-1.02); POTASSIUM 2.7 mmol/L (3.5-5.1)
--- NOTE | 2023-06-16 05:55 | NUR ---
PT RESTED WELL DURING THE SHIFT. PT CONTINUES TO HAVE DIARRHEA. PT INCONTINENT X2. VSS. IVF INFUSING PER ORDER. PT VERY WEAK AT THIS TIME, PT ON BEDREST. SAFETY PRECAUTIONS MAINTAINED. CALL LIGHT WITHIN REACH. WILL CONTINUE TO MONITOR.
[2023-06-16 07:01] LABS: C. DIFF TOXIN B GENE TCDB,PCR Not Detected (())
--- NOTE | 2023-06-16 07:11 | NUR ---
VERBAL REPORT RECEIVED FROM ZHANE BRO. PT AWAKE AND ALERT IN BED, NO REQUESTS AT THIS TIME.
[2023-06-16 09:23] LABS: BASOPHILS 0.2 % (0-2); EOSINOPHILS 5.7 % (0-6); HEMATOCRIT 34.5 % (35.0-50.0); HEMOGLOBIN 11.5 g/dL (12.0-18.0); LYMPHOCYTES 9.6 % (24-44); MCHC 33.3 g/dl (30-36); MCV 96.1 fl (81-99); MONOCYTES 9.6 % (0-12); NEUTROPHILS 74.9 % (39-80); PLATELET COUNT 251 K/uL (140-440); RBC 3.59 M/ul (4.3-5.7); RDW 13.8 (10.5-15.0)
--- NOTE | 2023-06-16 09:38 | NUR ---
THIS RN IN ROOM TO START K+ RIDER, PT RESTING IN BED ON BACK, WAKES EASILY WITH TOUCH. IV SITE PATENT WITH FLUSH. PT DENIES WANTING FURTHER BITES OF BREAKFAST. CALL LIGHT IN REACH.
[2023-06-16 10:07] VITALS: BP 138/64
--- NOTE | 2023-06-16 10:33 | NUR ---
CDIFF RESULTS NEGATIVE - ISOLATION PERC REMOVED.
--- NOTE | 2023-06-16 12:14 | NUR ---
PT REFUSES TO GET UP IN RECLINER. DISCUSSED PLAN OF CARE AND BENEFITS OF ACTIVITY. PT AGREES TO GET UP "LATER."
--- NOTE | 2023-06-16 13:44 | NUR ---
PT HAS INCONTINENCE EPISODE OF URINE AND STOOL. CARTER CARE PROVIDED. FULL LINEN CHANGE PERFORMED. BARRIER OINTMENT APPLIED. PT TURNED TO LEFT SIDE LAYING POSITION. WARM BLANKET PROVIDED. CALL LIGHT AND PERSONAL BELONGINGS IN REACH. NO REQUESTS AT THIS TIME.
[2023-06-16 14:14] VITALS: BP 135/66
[2023-06-16 15:15] LABS: ANION GAP 12.3 (7-21); BUN/CREATININE RATIO 12.24 (6.0-28.6); CALCIUM 7.9 mg/dL (8.5-10.1); CREATININE, SERUM 0.49 mg/dL (0.55-1.02); MAGNESIUM 1.9 mg/dL (1.8-2.4); POTASSIUM 3.3 mmol/L (3.5-5.1)
[2023-06-16 18:00] VITALS: BP 130/63
--- NOTE | 2023-06-16 19:37 | NUR ---
REPORT RECEIVED FROM DAY SHIFT RN. PT RESTING IN BED. SAFETY PRECAUTIONS MAINTAINED. CALL LIGHT WITHIN REACH. WILL CONTINUE TO MONITOR.
[2023-06-16 20:59] VITALS: BP 141/59
--- NOTE | 2023-06-16 21:29 | NUR ---
PT ASSESSED AND MEDICATIONS GIVEN. IVF INFUSING PER ORDER. PT HAD A LARGE INCONTINENT BM AND VOID. VSS. BS 159, SLIDING SCALE INSULIN GIVEN. SAFETY PRECAUTIONS MAINTAINED. CALL LIGHT WITHIN REACH. WILL CONTINUE TO MONITOR.
[2023-06-17 04:52] VITALS: BP 149/80
[2023-06-17 05:42] LABS: ANION GAP 11.6 (7-21); BUN/CREATININE RATIO 11.36 (6.0-28.6); CALCIUM 7.8 mg/dL (8.5-10.1); CREATININE, SERUM 0.44 mg/dL (0.55-1.02); POTASSIUM 2.6 mmol/L (3.5-5.1)
--- NOTE | 2023-06-17 06:02 | NUR ---
PT RESTED LITTLE DURING THE SHIFT. PT HAD MULTIPLE INCONTINENT BM'S. PT ALSO NAUSEOUS, ZOFRAN GIVEN X1. VSS. PT IS VERY WEAK, UP VIA HOITER LIFT. SAFETY PRECAUTIONS MAINTAINED. CALL LIGHT WITHIN REACH. WILL CONTINUE TO MONITOR.
--- NOTE | 2023-06-17 07:01 | NUR ---
Pt report received from ZHANE Laughlin. Pt is resting supine in bed, Jeannine in for CBG check. No needs at this time. Spoke with Dr. Torres regarding pt's current issue with diarrhea, C-Diff returned negative. Received verbal order from Dr. Torres to administer lamotil and immodium as well as a rectal tube if needed, to assist with prevention of skin breakdown from the amount and number of diarrhea episodes she is having.
--- NOTE | 2023-06-17 08:34 | NUR ---
In with pt for assessment and medication administration. Pt has a scarf wrapped around her head and requests that the heat be turned up. Pt is A&O x4, breakfast table at bedside. Call light in reach. Denies further needs at this time.
[2023-06-17 08:43] VITALS: BP 146/68
--- NOTE | 2023-06-17 11:44 | NUR ---
In with pt for hourly rounding. Pt is talking on a video call with her family at this time. Denies needs at this time. Call Light in reach. Personal belongings and bedside table in reach. Pt is back in bed.
[2023-06-17 14:05] VITALS: BP 141/62
[2023-06-17 17:28] VITALS: BP 145/61
--- NOTE | 2023-06-17 18:45 | NUR ---
PC TO DR. SINHA TO REQUEST AN ORDER FOR TOPICAL ZINC FOR "DIAPER RASH" AND TO ADVISE HIM THAT THE PT HAS NOT BEEN TAKING HER PO MEDS THIS AFTERNOON OR THIS EVENING STATING THAT SHE IS AFRAID SHE WILL GAG. ADVISED DR. SINHA THAT SHE WAS GIVEN 4MG ZOFRAN IV BUT REPORTS SHE IS STILL "QUEASY" AND DID NOT WANT TO TAKE HER PO MEDS AT [address]. [address] SINHA FOR DESITIN/ZINC OXIDE TO APPLY NEEDED FOR RASH R/T BOWEL INCONTINENCE (LOOSE) AND HE STATED THAT WE CAN TRY AGAIN TOMORROW WITH THE PO MEDS TO SEE IF SHE CAN TOLERATE THEM TOMORROW. THE PT'S DAUGHTER DID COMMUNICATE WITH THIS RN EARLIER TODAY THAT THEY PLAN TO SPEAK WITH HER AFTER DISCHARGE ABOUT GOING ON HOSPICE.
--- NOTE | 2023-06-17 19:07 | NUR ---
PT HAS BEEN VERY UNMOTIVATED THIS SHIFT AND HAS A FLAT AFFECT. SHE DID COOPERATE BY STANDING THIS MORNING BEFORE BREAKFAST AND PIVOT TRANSFERRED TO CHAIR WITH 2 PERSON HANDS-ON ASSISTANCE BUT SHE IS VERY WEAK. SHE HAS HAD MULTIPLE LIQUID STOOLS THAT SEEM TO BE GETTING THICKER AFTER A DOSE OF LOMOTIL AND A DOSE OF IMMODIUM BUT HAS SINCE BEEN FEELING VERY NAUSEATED AND VOMITED X1. PT'S CARTER AREA HAS GONE FROM NO BREAKDOWN WITH THIS MORNING'S ASSESSMENT TO AREAS OF RED RASHES WHERE THE LIQUID STOOL SITS FOR EVEN A BRIEF PERIOD OF TIME. A PUREWICK WAS LATER PLACED AT THE PT'S ANUS TO ATTEMPT TO WICK AWAY THE WATERY STOOL. PT HAS HAD FAMILY VISITING FOR MOST OF THE SHIFT UNTIL JUST BEFORE DINNER. SHE REFUSED TO EAT LUNCH AND DINNER AND HAS NOT HAD ENSURE R/T LACTOSE INTOLERANCE TO HELP REDUCE THE DIARRHEA. SHE HAS BEEN REFUSING PO MEDICATIONS AND HAD A HALF OF A TAB OF THE AMOXICILLIN THIS MORNING. SHE DID TRY TO SIP SOME DIET COKE, WITHOUT SUCCESS D/T BEING QUEASY. THIS WAS DISCUSSED OVER THE PHONE WITH DR. SINHA WHO ORDERED SOME DESITIN FOR THE AREAS OF RASH AND ADVISED WE WILL ATTEMPT TO RESUME PO MEDS TOMORROW MORNING. PT HAS BEEN SLEEPING (SNORING LOUDLY AT TIMES) SINCE AFTER HER FAMILY LEFT JUST BEFORE DINNER TIME. SHE HAS RECEIVED CALCIUM GLUCONATE IV, POTASSIUM IV, AND NS AT 125ML/HR. SHE DOES NOT USE THE CALL LIGHT BUT IS REORIENTED TO ITS USE OFTEN.
--- NOTE | 2023-06-17 19:41 | NUR ---
REPORT RECIEVED FROM NANDO PHELAN. PATIENT RESTING IN BED. CALL LIGHT WITHIN REACH. NO OTHER NEEDS AT THIS TIME.
[2023-06-17 21:38] VITALS: BP 149/64
--- NOTE | 2023-06-17 21:47 | NUR ---
WITH ASSIST CORRESPONDENCE DICTATOR, PT WAS CLEANED, LIQUID STOOL IN ATTENDS, AND ON PERIAREA. PUREWICK CHANGED AFTER CARE WAS COMPLETE. VS COMPLETED, I/O. PILLOW UNDER LEGS, PER CHOICE, HOB ELEVATED TO COMFORT. COVERS PER PT CHOICE, EMESIS BAG NEAR PER PT CHOICE. ALL PERSONAL SUPPLIES WITHIN REACH. LIGHTS OFF PER CHOICE
[2023-06-17 22:02] VITALS: BP 146/68
--- NOTE | 2023-06-17 22:21 | NUR ---
ASSESSMENT AND VITAL SIGNS DONE. SCHEDULED MEDICATIONS GIVEN PER ORDER, SEE MAR. BLOOD SUGAR CHECK DONE. CALL LIGHT WITH IN REACH. NO OTHER NEEDS AT THIS TIME.
--- NOTE | 2023-06-18 00:59 | NUR ---
PATIENT CALLED TO HAVE BRIEF CHANGED. BRIEF CHANGED. PURE WICK CHANGED. LIQUID BM IN BRIEF. PRN LOMOTIL ADMINISTERED, SEE MAR. CALL LIGHT WITHIN REACH. NO OTHER NEEDS AT THIS TIME.
--- NOTE | 2023-06-18 02:15 | NUR ---
PATIENT RESTING IN BED WITH EYES CLOSED. RESP OBSERVED. CALL LIGHT WITHIN REACH. NO OTHER NEEDS AT THIS TIME.
--- NOTE | 2023-06-18 03:56 | NUR ---
BRIEF CHANGED. INCONTINENT OF BM. BM LOOSE. ASSESSMENT DONE. PATIENT REPOSITIONED. CALL LIGHT WITHIN REACH. NO OTHER NEEDS AT THIS TIME. PURE WICK CHANGED.
[2023-06-18 06:14] VITALS: BP 129/54
--- NOTE | 2023-06-18 06:43 | NUR ---
PATIENT RESTING IN THE BED WITH EYES CLOSED. RESP OBSERVED. CALL LIGHT WITHIN REACH. NO OTHER NEEDS AT THIS TIME.
--- NOTE | 2023-06-18 07:16 | NUR ---
Received Pt report from ZHANE Dickson. Pt is resting supine in bed, mouth agape, eyes closed, lights off, breathing regular, even, and non-labored. Call light in reach.
[2023-06-18 08:58] VITALS: BP 128/62
--- NOTE | 2023-06-18 09:10 | NUR ---
In to speak with pt, son, Dr. Torres and myself. Discussed plan for this pt. discussed pt not eating and changes he has made to assist her with chronic diarrhea. We then discussed hospice. Pt stating she would like hospice, but is concerned for her childrens welfare. Son reassures mom, they will all be fine. She needs to think of herself. We then discussed which Hospice they would prefer, pt's son request [facility] as he had friends use this hospice. Mom is in agreement. I did give them the option of [facility] and [facility] here in [facility]. Both are in agreement for [place]. All in agreement to me tomorrow. I will schedule the wc van, update Summer at [facility] of pts plan for hospice, and contact Barbara at [facility].
--- NOTE | 2023-06-18 09:30 | NUR ---
IN WITH PT FOR ASSESSMENT AND MEDICATION ADMINISTRATION PER EMAR. PT'S SON IN ROOM. [facility] TO DISCUSS DISCHAR[facility] AND HOSPICE OPTIONS. PT VERBALIZED THAT SHE WOULD LIKE TO BE PLACED ON HOSPICE AFTER HAVING HER QUESTIONS ANSWERED. PT ATTENDS CHANGED, CARTER CARE PERFORMED, BARRIER SPRAY APPLIED, PURE WICK CHANGED AND PUT IN PLACE AND PT WAS ASSISTED BY 2 PERSONS TO STAND AND PIVOT TRANSFER TO CHAIR WITH MULTIPLE PILLOWS FOR COMFORT. CLEAN ATTENDS PLACED ON PT. PT SEEMS MORE ALERT AND COOPERATIVE THIS MORNING. CURRENTLY SHE IS UP IN THE CHAIR, WITH HER SON IN THE ROOM, ATTEMPTING TO EAT SOME BREAKFAST BEFORE SHE TRIES TO TAKE HER ORAL MEDICATIONS. CALL LIGHT IN REACH.
--- NOTE | 2023-06-18 09:47 | NUR ---
CONNECTED WITH SON JOE IN [facility] REGARDING PT RECENT DECISION TO ACCEPT HOSPICE CARE. SON RELEIVED PT WAS ABLE TO MAKE DECISION. I PRIMARILY EXERCISED MINISTRY OF PRESENCE. SON INDICATED ACCEPTANCE AND UNDERSTANDING OF SITUATION. PRAYED SILENTLY FOR COMFORT AND PEACE FOR PT AND FAMILY.
--- NOTE | 2023-06-18 10:30 | NUR ---
Pt's son advised that the pt is finished eating all of her oatmeal and is ready to try to swallow her pills. Pt is up in the chair, A&O x4, and states proudly "I ate all of the oatmeal and it was delicious!" Pt was praised for her efforts and encouraged to order oatmeal for lunch and dinner if she felt that is what she could tolerate and would enjoy. She requested that the rest of her breakfast be placed in the refrigerator because it looks good but she is full of oatmeal now (country potatoes, omelet, grapes). Pt sticker was placed on the plate of food and placed into a large ziploc bag then into the fridge along with the grapes. Pt's daughter and younger son arrived to encourage pt to take her po meds. Pt was provided with coffee, water, and diet pepsi over ice to facilitate med administration. Pt seems to be putting off taking the medications. Encouraged pt to take her meds in a timely manner so that they can start working and she can continue to feel better as she has said she does today. Pt's call light, personal belongings, and bedside table are in reach and family is in with pt. Warm blankets provided.
--- NOTE | 2023-06-18 10:33 | NUR ---
Contacted [facility]. They have an opening on Sun for a hospice admit. Contacted Summer at [facility] and they prefer a morning dc and will set a wc out for the wc van to pick pt up. They are also good with pt admitting to hospice. I then called and scheduled the wc for at 11:00. Asked them to black pickler the wc from [facility]. I am awaiting note from Dr. Torres to complete the referral to hospice.
--- NOTE | 2023-06-18 12:30 | NUR ---
PT IS RESTING IN BED WITH EYES CLOSED BUT AWAKENS EASILY TO SOFT NOISE. ATTENDS CHANGED, CARTER CARE PERFORMED, PUREWICK CHANGED, DESITIN APPLIED TO CARTER AREA WHERE RASH IS. PT REPORTS THERE IS LESS PAIN WITH CLEANING THAN YESTERDAY. STOOL SEEMS TO BE BECOMING THICKER AND LESS OF IT. PT WAS ABLE TO SWALLOW LAMICTAL AND ONE HALF OF THE AUGMENTIN BUT SEEMS TO BE REFUSING TO TAKE THE REST OF THE MORNING PO MEDS EVEN THOUGH THEY WERE ALL CUT IN HALF (EXCEPT FOR THE CAPSULES). PT'S SOUP FROM YESTERDAY WAS WARMED UP TO HER LIKING AT HER REQUEST AND PLACED INTO A STYROFOAM CUP WITH A STRAW BECAUSE SHE SAID "THAT SOUNDS DELICIOUS". CALL LIGHT, PERSONAL BELONGINGS, AND BEDSIDE TABLE PLACED IN REACH.
[2023-06-18 13:25] VITALS: BP 139/66
--- NOTE | 2023-06-18 13:52 | NUR ---
IN WITH PT FOR IV FLUID COMPLETION. NEW BAG WITH NEW TUBING STARTED AT ORDERED RATE OF 125ML/HR. IV SITE IS PATENT, SOME RETURN, FLUSHES WELL, NO PAIN OR OTHER ABNORMALITIES NOTED. PT IS A&O X4, DENIES NEEDS AT THIS TIME. CALL LIGHT IN REACH.
--- NOTE | 2023-06-18 15:36 | NUR ---
IN WITH PT FOR ATTENDS CHANGE AND CARTER CARE. PT STATES THE CARROT JOSE SOUP FROM LUNCH IS GIVING HER A TUMMY ACHE. PT UNDERGARMENTS FULL OF LOOSE STOOL AND PUREWICK IS SOILED. CARTER CARE PROVIDED, DESITIN APPLIED. LINENS CHANGED NEEDED. WARM BLANKETS PROVIDED. CALL LIGHT IN REACH.
--- NOTE | 2023-06-18 16:17 | NUR ---
All confirmed for hospice tomorrow. Hospice will admit on Sun. van scheduled for 11:00 tomorrow for return to [facility].
--- NOTE | 2023-06-18 16:24 | NUR ---
RECEIVED VO FROM DR. RANKIN AT 1619 HOURS FOR A RECTAL TUBE IF THE PT IS AGREEABLE. ASKED THE PT IF SHE WOULD PREFER TO TRY A RECTAL TUBE BUT SHE STATED, "I DON'T THINK SO". WILL GIVE HER TIME TO DISCUSS WITH HER FAMILY WHEN THEY COME BACK TO VISIT. CALL LIGHT IN REACH.
--- NOTE | 2023-06-18 17:50 | NUR ---
IN WITH PT AND PT'S SON TO PROVIDE EDUCATION ON RECTAL TUBES. DEMONSTRATED HOW THEY ARE USED BY SHOWING THEM WHAT THEY LOOK LIKE AND WHAT PART IS INSERTED INTO THE RECTUM AND HOW FAR. PT AND PT'S SON VERBALIZED UNDERSTANDING AND PT AGREES TO CONSIDER THE RECTAL TUBE FOR HER STOOL INCONTINENCE TO HELP PROVIDE COMFORT AND REDUCE THE RISK OF SKIN BREAKDOWN.
--- NOTE | 2023-06-18 18:00 | NUR ---
PT IS REFUSING TO TAKE HER EVENING PO MEDS, STATING "MAYBE LATER". ADVISED PT THAT SHE SHOULD EAT SOMETHING AND THAT WE CAN PUT HER MEDS IN PUDDING OR SOMETHING TO HELP HER GET THEM DOWN BETTER. SHE SAID SHE UNDERSTANDS BUT JUST WANTS TO SLEEP RIGHT NOW. HER SON LEFT HER ROOM TO GO HOME AND THE PT FELL ASLEEP. WILL ADVISE ROOM ATTENDANTS THAT SHE HAS NOT TAKEN HER PO MEDS THIS EVENING. CALL LIGHT IN REACH.
--- NOTE | 2023-06-18 18:35 | NUR ---
PT WAS UP IN THE CHAIR FOR A COUPLE OF HOURS THIS MORNING FOR BREAKFAST WHILE HER VISITORS WERE HERE. CARTER CARE WAS PERFORMED PRIOR TO HER MOVING TO THE CHAIR, AND LATER WHEN SHE WAS BACK IN BED, SEVERAL TIMES. PT HAS HAD AN APPROXIMATELY TOTAL OF 8-10 LOOSE OR WATERY LIQUID STOOLS THIS SHIFT. SHE WAS ABLE TO TOLERATE AN ENTIRE BOWL OF OATMEAL THIS MORNING, STATING THAT "IT WAS SO DELICIOUS". FOR LUNCH SHE WANTED TO TRY HER CARROT JOSE SOUP BUT DECIDED IT WAS TOO SPICY AND SAID IT DID NOT SIT WELL IN HER STOMACH. AFTERWARDS SHE BECAME QUEASY AGAIN (SHE WAS GIVEN ZOFRAN WITH HER MORNING MEDS, OF WHICH SHE ONLY TOOK AUGMENTIN - DID NOT TAKE THE GABAPENTIN, FLAGYL, OR CULTURELLE). SHE WAS GIVEN ANOTHER DOSE OF ZOFRAN AT 1500 HOURS AND WAS CLEANED UP AND CHANGED MULTIPLE TIMES THROUGHOUT THE SHIFT. THE SKIN IN HER CARTER AREA IS ANGRY RED RASH WHICH WE HAVE BEEN APPLYING DESITIN TOO. A PUREWICK WAS PLACED AGAINST HER ANUS TO ASSIST WITH WICKING LIQUID AWAY MUCH POSSIBLE. THE PT APPEARED MORE LIVELY THIS MORNING BUT HAS SINCE DECLINED TO HAVE A FLAT AFFECT AGAIN THIS EVENING, MUCH LIKE THE DAY BEFORE. THE PT IS COLD OFTEN AND IS PROVIDED WITH MULTIPLE WARM BLANKETS. SHE HAS NAPPED THROUGHOUT THE DAY. SHE DOES NOT USE THE CALL LIGHT.
[2023-06-18 18:52] VITALS: BP 137/62
--- NOTE | 2023-06-18 19:10 | NUR ---
REPORT RECEIVED FROM ZHANE COLLIER. pt RESTING IN BED WITH EYES CLOSED. BREATHING EQUAL AND UNLABORED. NO DISTRESS NOTED.
[2023-06-18 21:15] VITALS: BP 127/61
--- NOTE | 2023-06-18 21:45 | NUR ---
pt SLEEPING, AWAKENS TO VOICE. VS COMPLETE. CBG 51. DEXTROSE 50% ADMINISTERED PER PROTOCOL. IV SITE FLUSHED, BRISK BLOOD RETURN NOTED. ASSESSMENT COMPLETE. pt DENIES SYMPTOMS OF HYPOGLYCEMIA. INCONTINENT OF LIQUID STOOL. ATTENDS AND CHUX CHANGED. NEW PUREWICK PLACED. DESITIN APPLIED TO REDDENED AREA ON BUTTOCKS, CARTER AREA. REPOSITIONED IN BED TO FLOATING WITH PILLOWS UNDER EACH HIP. CREDIT COMPLIANCE OFFICER REMAINS IN ROOM.
--- NOTE | 2023-06-18 21:58 | NUR ---
pt RESTING IN BED WITH EYES CLOSED. CBG 135 AT THIS TIME. IVF INFUSING WNL.
--- NOTE | 2023-06-18 22:02 | NUR ---
CLEANED UP PATIENT FROM INCONTINENT LIQUIDY WITH SOME MUCOS BM. PLACED NEW PUREWICK.
--- NOTE | 2023-06-19 00:08 | NUR ---
CALL LIGHT ANSWERED. pt INCONTINENT OF LIQUID, MUCOUS STOOL. ATTENDS CHANGED. DESITIN APPLIED. NEW PUREWICK PLACED. pt REPOSITIONED IN BED WITH PILLOW UNDER RIGHT HIP. DENIES ADDITIONAL NEEDS. IVF INFUSING WNL.
--- NOTE | 2023-06-19 01:58 | NUR ---
CLEANED UP/CARTER CARE PATIENT'S INCONTINENT BM. NEW PUREWICK PLACED.
--- NOTE | 2023-06-19 02:08 | NUR ---
PATIENT CALLED TO HAVE HER BRIEF CHANGED. BLOOD SUGAR CHECKED PER PROTOCOL. BLOOD SUGAR SPOT CHECKED AT 56. THIS NURSE INTIATED PROTOCOL FOR LOW BLOOD SUGAR. IV SITE ASSESSED. IV INFILTRATED. IV REMOVED, COMPRESS APPLIED AND ELEVATED. Pt ABLE TO EAT 2 BUDDY CRACKERS WITH PEANUT BUTTER. CBG 57 AFTER 15 MINUTES. NEW IV STARTED BY SALO PHELAN. PHONED UPDATED ON BLOOD SUGARS. NEW OREDERS RECIEVED AND REPEATED BACK TO VERIFY.
--- NOTE | 2023-06-19 02:57 | NUR ---
PATIENT RESTING. D5W INFUSING PER ORDER, SEE MAR. IV ASSESSED, WNL. CALL LIGHT WITHIN REACH. NO OTHER NEEDS AT THIS TIME.
--- NOTE | 2023-06-19 04:09 | NUR ---
PATIENT RESTING WITH EYES CLOSED. IV SITE ASSESSED. RESP OBSERVED. CALL LIGHT WITHIN REACH. NO OTHER NEEDS AT THIS TIME.
[2023-06-19 05:00] VITALS: BP 136/60
--- NOTE | 2023-06-19 05:11 | NUR ---
PATIENT IN BED RESTING. BRIEF CHANGED. IV ASSESSED, WNL. PRN CBG 147. NEW PURE WICK PLACED. VITAL SIGNS DONE. CALL LIGHT WITHIN REACH. NO FUTHER NEEDS AT THIS TIME.
--- NOTE | 2023-06-19 07:48 | NUR ---
REPORT RECIEVED FROM ZHANE EAGLE PT IN BED WITH EYES CLOSED. RICHY BUENROSTRO IN TO VISIT.
--- NOTE | 2023-06-19 08:53 | NUR ---
ASSESSED BS, 225, DR IN ROOM. TURNED OFF IVF PER VERBAL. PT DENIES WANTING TO EAT BREAKFAST.
[2023-06-19] MEDS ORDERED: AMOX TR-K CLV1 EAC1 PO (09:25)
[2023-06-19] MEDS ORDERED: METRONIDAZOLE250 MG PO (09:25)
--- NOTE | 2023-06-19 09:55 | NUR ---
PT WOKE FOR MORNING MEDS. REFUSED MOST OF THEM BUT WAS ABLE TO TAKE THE SMALLER OF THE AB, FLAGYL. AND THE IMMODIUM HOPING TO STOP OR SLOW THE DIAHRREA. PT THEN ATE 6 BITES OF OATMEAL. STATES SHE DOES NOT FEEL WELL THIS MORNING AND IS VERY TIRED.
[2023-06-19 10:03] VITALS: BP 138/58
== END 2023-06-19 11:20 | disposition hospice, home (50) | DRG 871 ==
LOC: ED 07:49 → CCU 09:25 → MS 09:25
PROVIDERS: Emergency Medicine; Internal Medicine; ADMIT Family Medicine; ATTEND Family Medicine
DX: A41.9 Sepsis, unspecified organism (principal); E10.10 Type 1 diabetes mellitus with ketoacidosis without coma; K52.1 Toxic gastroenteritis and colitis; N17.9 Acute kidney failure, unspecified; N39.0 Urinary tract infection, site not specified; Z16.19 Resistance to other specified beta lactam antibiotics; Z66 Do not resuscitate; B95.2 Enterococcus as the cause of diseases classified elsewhere; G89.29 Other chronic pain; T36.95XA Adverse effect of unspecified systemic antibiotic, initial encounter; E87.6 Hypokalemia; R41.3 Other amnesia; Z79.4 Long term (current) use of insulin; Z88.2 Allergy status to sulfonamides; Z88.8 Allergy status to other drugs, medicaments and biological substances; Z88.1 Allergy status to other antibiotic agents; Z79.899 Other long term (current) drug therapy; Z79.2 Long term (current) use of antibiotics; Z11.52 Encounter for screening for COVID-19
CPT/HCPCS: 36415; 51702; 71045; 74177; 80048; 80053; 81001; 82010; 82150; 82800; 82803; 83036; 83605; 83735; 85025; 85060; 87040; 87088; 87186; 87493; 87502; 92610; 97161; 97165; 97530; 97535; 99285-25; A9270; C9113; C9803; J0692; J0696; J0780; J1650; J1815; J2270; J2405; J3475; J3480; J3490; J7030; J7042; J7060; J7070; Q9967; U0002